=== PATIENT | female | born 1965 | race Caucasian/White ===

== ENCOUNTER → 2016-06-09 | Outpatient (CLI) | payer OTHER | LOC: BMCIMAGING 14:15 | DX: Z12.31 Encounter for screening mammogram for malignant neoplasm of breast (principal) | CPT/HCPCS: G0202 ==

== ENCOUNTER 2016-06-16 23:54 | Emergency (ER) | payer OTHER ==
[2016-06-17 00:06] VITALS: RESP 16; TEMP 98.1; O2SAT 97
--- NOTE | 2016-06-17 00:25 | EDPHY ---
General Narrative: CHIEF COMPLAINT: Splinter under right middle fingernail HISTORY OF PRESENT ILLNESS: Splinter in the right middle fingernail that happened 2 days ago. She was working with [employer] when it happened. Moderately painful time. Minimal bleeding at the time. No numbness or tingling in the finger tip. No cyanosis or pallor. Pain is worse with palpation. Does not radiate. No other associated complaints or modifying factors. Tetanus is up-to-date REVIEW OF SYSTEMS: Ten systems reviewed and are negative unless otherwise noted in the HPI EXAMINATION General Appearance: Alert, no distress Cardiovascular: Pulses normal throughout. Brisk cap refill Neurological: A&O, sensory symmetric, strength symmetric Skin: Warm and dry, no rash Extremities: Nontender, no pedal edema Psychiatric: Mood and affect normal MDM: 12:20 a.m. Splinter under the nail bed of the right middle finger. This is uncomplicated without any signs of infection. This been present for nearly 4 hours. Patient says it is painful to the touch but she has no neuro complaints with it. No bleeding. She is up-to-date on her tetanus status. I have applied a digital block for pain control. I will make 1 attempt to remove the splinter. If not the splinter will make its way out with the nail as a grows. She is comfortable with this plan and in no acute distress. 12:29 a.m. After digital block I re-examine the fingernail. I attempted to remove it with a pair of tweezers very briefly, but there was no splinter that could be reach with the tweezers. Discharged home with instructions to take ibuprofen for the next few days. Hand hygiene stress. The splinter will work its way out over the next few weeks with the nail. She is comfortable with this plan and discharged home stable condition. PROCEDURE: Digital Block Indication: Splinter under middle finger nail bed Consent: Verbal Location: Middle finger, right hand Anesthesia: Lidocaine 1% plain, 0.25% Marcaine plain, 5mL Description: After preparation of the skin with chlorhexidine, 5 mL as of the above were infused. There is good anesthesia. Good hemostasis. Brisk cap refill postprocedure. Complications: None ED Precautions: Worsening pain. Erythema, edema, cyanosis, pallor, paresthesia or anesthesia. SUPERVISION: This patient was independently evaluated without direct examination by the attending physician. Case was discussed with attending physician. - History Smoking Status: Never smoked - Objective Vital Signs: Initial Vital Signs Temperature (C) 98.1 F 06/17/16 00:04 Heart Rate 62 06/17/16 00:04 Respiratory Rate 16 06/17/16 00:04 Blood Pressure 119/84 H 06/17/16 00:04 O2 Sat (%) 97 06/17/16 00:04 O2 Delivery Mode Room Air Allergies/Adverse Reactions: No Known Allergies Allergy (Unverified 06/17/16 00:03) Home Medications: Medication Instructions Recorded Bcp 06/17/16 Departure - Departure Disposition: Home, Routine, Self-Care Clinical Impression: Splinter Condition: Good Instructions: Soft Tissue Foreign Body (ED) Additional Instructions: Wound care as discussed Referrals: Aspen Dumont MD [Primary Care Provider] - As per Instructions
[2016-06-17] MEDS ORDERED: ONDANSETRON DISINTEGRATING 4 MG TAB PO ONE (00:32)
[2016-06-17 01:03] VITALS: BP 110/74; PULSE 54
== END 2016-06-17 01:03 | disposition home or self-care (01) ==
DX: S60.452A Superficial foreign body of right middle finger, initial encounter (principal); W45.8XXA Other foreign body or object entering through skin, initial encounter; Y92.69 Other specified industrial and construction area as the place of occurrence of the external cause; Y99.8 Other external cause status; Y93.89 Activity, other specified

== ENCOUNTER → 2016-06-22 | Outpatient (CLI) | payer OTHER | LOC: BMCIMAGING 12:15 | DX: Z12.39 Encounter for other screening for malignant neoplasm of breast (principal); N63 Unspecified lump in breast | CPT/HCPCS: G0206 ==

== ENCOUNTER → 2017-01-20 | Outpatient (CLI) | payer OTHER | LOC: BMCIMAGING 10:47 | PROVIDERS: ATTEND Family Medicine | DX: N63.11 Unspecified lump in the right breast, upper outer quadrant (principal) ==

== ENCOUNTER → 2017-09-13 | Outpatient (CLI) | payer OTHER | LOC: BMCIMAGING 14:27 | PROVIDERS: ATTEND Family Medicine | DX: R91.8 Other nonspecific abnormal finding of lung field (principal) ==